=== PATIENT | female | born 1975 | race Two or more races ===

== ENCOUNTER 2017-07-02 14:32 | Emergency (ER) | payer MEDICAID, OTHER ==
[2017-07-02 14:51] VITALS: BMI 29.2
[2017-07-02 14:54] VITALS: TEMP 97.8
[2017-07-02] MEDS ORDERED: Levalbuterol 0.63 MG/3 ML Inhal Soln UD IH STA (15:40)
[2017-07-02] MEDS ORDERED: Albuterol-Ipratrop 3 mg / 0.5 (3 ml) UD IH STA ×2 (16:26→18:45)
[2017-07-02] MEDS ORDERED: Promethazine/Cod 6.25mg-10mg/5ml Syr UD PO STA (16:27)
[2017-07-02] MEDS ORDERED: Albuterol-Ipratrop 3 mg / 0.5 (3 ml) UD ONE (16:28)
--- NOTE | 2017-07-02 16:29 | RAD ---
HISTORY: SOB COMPARISON: No prior. FINDINGS: LUNGS: The lungs are clear. PLEURA: No significant pleural effusion identified, no pneumothorax apparent. CARDIOVASCULAR: Normal. OSSEOUS STRUCTURES: No significant abnormalities. VISUALIZED UPPER ABDOMEN: Normal. OTHER FINDINGS: None. IMPRESSION: Limited portable examination, no acute findings.
[2017-07-02 16:50] LABS: BASO # 0.04 K/mm3 (0.0-2.0); BASO % 0.2 % (0.0-3.0); EOS % 0.1 % (1.5-5.0); GRAN # 11.75 (1.4-6.5); GRAN % 70.6 % (50.0-68.0); HEMOGLOBIN 10.9 g/dL (12.0-16.0); LYMPH # 4.2 (1.2-3.4); LYMPH % 25.1 % (22.0-35.0); MEAN CELL VOLUME 89.1 fl (80.0-105.0); MEAN CORPUSCULAR HEMOGLOBIN 28.2 pg (25.0-35.0); MEAN CORPUSCULAR HGB CONC 31.6 g/dl (31.0-37.0); MEAN PLATELET VOLUME 9.2 fl (7.0-11.0); MONO # 0.7 (0.1-0.6); RBC 3.87 10^6/uL (3.5-6.1); RED CELL DISTRIBUTION WIDTH 15.3 % (11.5-14.5); WHITE BLOOD COUNT 16.7 10^3/ul (4.5-11.0)
[2017-07-02 17:18] LABS: PARTIAL THROMBOPLASTIN TIME 31.8 Seconds (25.1-36.5); PROTHROMBIN TIME 11.4 SECONDS (9.4-12.5)
[2017-07-02 18:20] LABS: ALB/GLOB RATIO 1.1 (1.1-1.8); ALBUMIN 3.6 g/dL (3.0-4.8); ALT/SGPT 30 U/L (7-56); AST/SGOT 28 U/L (14-36); BLOOD UREA NITROGEN 22 mg/dL (7-21); CALCIUM 9.1 mg/dL (8.4-10.5); GFR AFRICAN-AMERICAN > 60; GFR NON-AFRICAN AMERICAN > 60
--- NOTE | 2017-07-02 18:25 | ED PDOC ---
Arrival/HPI - General Chief Complaint: Shortness Of Breath Time Seen by Provider: 07/02/17 15:36 Historian: Patient - History of Present Illness Narrative History of Present Illness (Text): 07/02/17 21:34 41yo female referred to ED by Dr. Katz for days history of cough, SOB and wheezing. Patient was seen at [facility] and was given albuterol and antitussive for Bronchitis. Pt states taking the medication without relieve. She smoke tobacco. She reports chest pain with the cough. Denies fever, chills, sick contact, travel, any other complaint. Past Medical History - Provider Review Nursing Documentation Reviewed: Yes - Infectious Disease Hx of Infectious Diseases: None - Hematological/Oncological Hx Shingles: Yes - Musculoskeletal/Rheumatological Hx Arthritis: Yes Hx Back Pain: Yes Hx Falls: No Other/Comment: neck problem - Psychiatric Hx Substance Use: Yes (marijuana) - Surgical History Hx Tubal Ligation: Yes - Anesthesia Hx Anesthesia: Yes Hx Anesthesia Reactions: No Family/Social History - Physician Review Nursing Documentation Reviewed: Yes Family/Social History: Unknown Family HX Smoking Status: Heavy Smoker > 10 Cigarettes Daily Hx Alcohol Use: Yes (social) Hx Substance Use: Yes (marijuana) Allergies/Home Meds Allergies/Adverse Reactions: Allergies amoxicillin Allergy (Verified 07/26/15 13:19) RASH sulfamethoxazole [From Bactrim] Allergy (Verified 07/26/15 13:21) ITCHING trimethoprim [From Bactrim] Allergy (Verified 07/26/15 13:21) ITCHING Home Medications: Home Meds Medication Instructions Recorded Confirmed Albuterol 0.083% [Albuterol 0.083% 1 vial IH QID 07/02/17 07/02/17 Inhal Nadine (2.5 mg/3 ml) UD] Gabapentin [Neurontin] 1 tab PO DAILY 07/02/17 07/02/17 Review of Systems - Physician Review All systems were reviewed & negative as marked: Yes - Review of Systems Constitutional: Normal Eyes: Normal ENT: Normal Respiratory: SOB, Cough, Wheezing. absent: Sputum Cardiovascular: Normal Gastrointestinal: Normal Genitourinary Female: Normal Musculoskeletal: Normal Skin: Normal Neurological: Normal Endocrine: Normal Hemo/Lymphatic: Normal Psychiatric: Normal Physical Exam Vital Signs Reviewed: Yes Vital Signs Temp Pulse Resp BP Pulse Ox 07/02/17 21:06 82 18 132/80 99 07/02/17 18:26 84 20 147/66 96 07/02/17 16:43 80 22 98 07/02/17 16:41 24 07/02/17 14:54 97.8 F 72 20 137/103 H 97 Temperature: Afebrile Blood Pressure: Hypertensive Pulse: Regular Respiratory Rate: Normal Appearance: Positive for: Well-Appearing, Non-Toxic, Comfortable Pain Distress: None Mental Status: Positive for: Alert and Oriented X 3 - Systems Exam Head: Present: Atraumatic, Normocephalic Pupils: Present: PERRL Extroacular Muscles: Present: EOMI Conjunctiva: Present: Normal Mouth: Present: Moist Mucous Membranes Neck: Present: Normal Range of Motion Respiratory/Chest: Present: Good Air Exchange, Wheezes (Diffuse expiratory wheeze), Decreased Breath Sounds (Diffuse). No: Respiratory Distress, Accessory Muscle Use, Retracting, Rhonchi, Tachypneic Cardiovascular: Present: Regular Rate and Rhythm, Normal S1, S2. No: Murmurs Abdomen: Present: Normal Bowel Sounds. No: Tenderness, Distention, Peritoneal Signs Back: Present: Normal Inspection Upper Extremity: Present: Normal Inspection. No: Cyanosis, Edema Lower Extremity: Present: Normal Inspection. No: Edema Neurological: Present: GCS=15, CN II-XII Intact, Speech Normal Skin: Present: Warm, Dry, Normal Color. No: Rashes Psychiatric: Present: Alert, Oriented x 3, Normal Insight, Normal Concentration Medical Decision Making ED Course and Treatment: 07/02/17 21:36 Pt continue to wheeze in ED s/p treatment. CXR was negative. Leukocytosis was noted, but source could not be determined at this point. Blood culture pending. BP improved in ED. EKG NSR @73bpm Pt was admitted for status asthmaticus. Case was DW Dr. Downing Resident who also saw pt in ED. - Lab Interpretations Lab Results: 07/02/17 16:20 07/02/17 17:30 Lab Results 07/02/17 17:30: Phosphorus 2.7, Magnesium 2.1 07/02/17 17:30: Iron 12 L, TIBC 339, % Saturation 3 L 07/02/17 17:30: Sodium 141, Potassium 4.0, Chloride 106, Carbon Dioxide 25, Anion Gap 14, BUN 22 H, Creatinine 0.9, Est GFR ( Amer) > 60, Est GFR ( Non-Af Amer) > 60, Random Glucose 149 H, Calcium 9.1, Total Bilirubin 0.1 L, AST 28, ALT 30, Alkaline Phosphatase 64, Lactate Dehydrogenase 611, Total Creatine Kinase 244 H, CK-MB (CK-2) 1.1, CK-MB (CK-2) % Cancelled, Troponin I < 0.01, Total Protein 6.7, Albumin 3.6, Globulin 3.1, Albumin/Globulin Ratio 1.1 07/02/17 16:20: PT 11.4, INR 1.00, APTT 31.8, D-Dimer, Quantitative 243 07/02/17 16:20: WBC 16.7 H D, RBC 3.87, Hgb 10.9 L, Hct 34.5 L, MCV 89.1, MCH 28.2, MCHC 31.6, RDW 15.3 H, Plt Count 340, MPV 9.2, Gran % 70.6 H, Lymph % ( Auto) 25.1, [place] % (Auto) 4.0, Eos % (Auto) 0.1 L, Baso % (Auto) 0.2, Gran # 11.75 H, Lymph # 4.2 H, [place] # 0.7 H, Eos # 0.0, Baso # 0.04 - RAD Interpretation Radiology Orders: 07/02/17 15:39 CHEST PORTABLE [RAD] Stat - Medication Orders Current Medication Orders: Acetaminophen (Tylenol 325mg Tab) 650 mg PO Q4 PRN PRN Reason: Fever >100.4 F Acetylcysteine (Acetylcysteine 20%) 4 ml IH [id number] [facility] Last Admin: 07/02/17 21:08 Dose: Not Given Non-Admin Reason: Patient Refused Albuterol/Ipratropium (Duoneb 3 Mg/0.5 Mg (3 Ml) Ud) 3 ml IH [id number] [facility] Last Admin: 07/02/17 21:07 Dose: Not Given Non-Admin Reason: Patient Refused Albuterol/Ipratropium (Duoneb 3 Mg/0.5 Mg (3 Ml) Ud) 3 ml IH Q2H PRN PRN Reason: Shortness of Breath Guaifenesin/Dextromethorphan (Mucinex-Dm 600-30 Mg) 1 tab PO BID [facility] Last Admin: 07/02/17 21:08 Dose: Not Given Non-Admin Reason: Patient Refused Levofloxacin/Dextrose (Levaquin 750mg) 750 mg in 150 mls @ 100 mls/hr IVPB DAILY KELSEY PRN Reason: Protocol Last Admin: 07/02/17 21:08 Dose: Not Given Non-Admin Reason: Patient Refused Ibuprofen (Motrin Tab) 400 mg PO Q6H PRN PRN Reason: Pain, Mild (1-3) Ibuprofen (Motrin Tab) 400 mg PO Q4H PRN PRN Reason: Pain, Mild (1-3) Methylprednisolone (Solu-Medrol) 40 mg IVP Q8 [facility] Oxycodone/Acetaminophen (Percocet 10/325 Mg Tab) 1 tab PO Q6H PRN PRN Reason: Pain, severe (8-10) Pantoprazole Sodium (Protonix Ec Tab) 40 mg PO 0600 [facility] Discontinued Medications Albuterol/Ipratropium (Duoneb 3 Mg/0.5 Mg (3 Ml) Ud) 3 ml IH STAT STA Stop: 07/02/17 16:27 Last Admin: 07/02/17 16:32 Dose: 3 ml Albuterol/Ipratropium (Duoneb 3 Mg/0.5 Mg (3 Ml) Ud) 3 ml IH STAT STA Stop: 07/02/17 18:46 Last Admin: 07/02/17 19:02 Dose: 3 ml Albuterol/Ipratropium (Duoneb 3 Mg/0.5 Mg (3 Ml) Ud) 3 ml IH Q15M KELSEY Stop: 07/02/17 19:46 Last Admin: 07/02/17 21:07 Dose: Not Given Non-Admin Reason: Patient Refused Ketorolac Tromethamine (Toradol) 30 mg IVP STAT STA Stop: 07/02/17 16:28 Last Admin: 07/02/17 16:36 Dose: 30 mg MAR Pain Assessment Document 07/02/17 16:36 [email or web address] (Rec: 07/02/17 16:37 CAST [id number]) Pain Reassessment Is this a pain reassessment? No Sleep Is patient sleeping during reassessment? No Presence of Pain Presence of Pain Yes Pain Scale Used Pain Scale Used Numeric Location Pain Location Body Bridal Sales Consultant Description Description Constant Intensity of Pain at present 8 Pain Behavior Facial Grimacing Aggravating Factors Changing Position Alleviating Factors/Management Medication Techniques Alleviating Factors Medication IVP Administration Document 07/02/17 16:36 CAST (Rec: 07/02/17 16:[id number]) Charges for Administration # of IVP Administrations 1 Levalbuterol HCl (Xopenex) 0.63 mg IH ONCE STA Stop: 07/02/17 15:41 Last Admin: 07/02/17 16:32 Dose: 0.63 mg Methylprednisolone (Solu-Medrol) 125 mg IVP STAT STA Stop: 07/02/17 15:41 Last Admin: 07/02/17 16:32 Dose: 125 mg IVP Administration Document 07/02/17 16:32 CAST (Rec: 07/02/17 16:[id number]) Charges for Administration # of IVP Administrations 1 Methylprednisolone (Solu-Medrol) 40 mg IVP STAT STA Stop: 07/02/17 19:15 Last Admin: 07/02/17 21:13 Dose: 40 mg IVP Administration Document 07/02/17 21:13 CAST (Rec: 07/02/17 21:[id number]) Charges for Administration # of IVP Administrations 1 Promethazine HCl/Codeine (Phenergan/Codeine Oral Syrup) 5 ml PO STAT STA Stop: 07/02/17 16:28 Last Admin: 07/02/17 16:36 Dose: 5 ml Disposition/Present on Arrival - Present on Arrival Any Indicators Present on Arrival: No History of DVT/PE: No History of Uncontrolled Diabetes: No Urinary Catheter: No History of Decub. Ulcer: No History Surgical Site Infection Following: None - Disposition Have Diagnosis and Disposition been Completed?: Yes Diagnosis: Status asthmaticus Disposition: AGAINST MEDICAL ADVICE Disposition Time: 20:10 Patient Problems: Current Active Problems Problem Status Onset Status asthmaticus Acute Condition: FAIR
[2017-07-02 18:27] LABS: TROPONIN I < 0.01 ng/mL
[2017-07-02 18:32] LABS: CK-MB 1.1 ng/mL (0.0-3.6)
[2017-07-02] MEDS ORDERED: Oxycodone/Acetaminophen 10/325 mg Tab PO PRN (19:11)
[2017-07-02] MEDS ORDERED: MethylPREDNISolone 40 mg Vial IVP STA (19:14)
[2017-07-02] MEDS ORDERED: Albuterol-Ipratrop 3 mg / 0.5 (3 ml) UD IH SCH (19:30)
[2017-07-02] MEDS ORDERED: guaiFENesin-DM 600-30 mg ER Tab PO SCH (19:30)
[2017-07-02 19:32] LABS: IRON 12 ug/dL (45-180); MAGNESIUM 2.1 mg/dL (1.7-2.2)
--- NOTE | 2017-07-02 19:32 | CP.PCM.HP ---
History of Present Illness - History of Present Illness History of Present Illness: Jhon Traore PGY1 IM H&P Note for Dr. Downing/Dr. Katz Service cc: sob, cough and wheezing Ms. Skaggs is a 41 yo F with PMH migraines, neck pain, tobacco use and seasonal allergies who presented to ED with her father per Dr. Katz recommendations for shortness of breath, cough and wheezing x1 week. 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 Patient was seen at [facility] and was given albuterol and antitussive for Bronchitis, however, reports taking the medication without relief. pt denies ever having asthma or any respiratory symptoms. denies abdominal pain, weakness, fevers/chills, n/v/d , recent illness, sick contacts. cough is sometimes productive and other times dry. 12-pt ROS was reviewed and is otherwise unremarkable. In ED, solu-medrol 125mg IVP, Duonebs x2, Toradol and Xopenex were given. Patient still uncomfortable when seen by me. PMD: Dr. Katz PMH: as above PSH: tubal ligation Meds: on pain meds (percocet, gabapentin and felexeril), excedrin NKDA SHx: smokes 1pk yr for many years, denies etoh, former marijuana smoker, denies cocaine or heroin Present on Admission - Present on Admission Any Indicators Present on Admission: No Review of Systems - Review of Systems All systems: reviewed and no additional remarkable complaints except (as per HPI ) Past Patient History - Infectious Disease Hx of Infectious Diseases: None - Past Social History Smoking Status: Heavy Smoker > 10 Cigarettes Daily Alcohol: None Drugs: Denies - CARDIAC Hx Cardiac Disorders: No - PULMONARY Hx Respiratory Disorders: No Hx Asthma: No Hx Bronchitis: No Hx Chronic Obstructive Pulmonary Disease (COPD): No - NEUROLOGICAL Hx Neurological Disorder: No - HEENT Hx HEENT Problems: No - RENAL Hx Chronic Kidney Disease: No - ENDOCRINE/METABOLIC Hx Endocrine Disorders: No - HEMATOLOGICAL/ONCOLOGICAL Hx Blood Disorders: No - INTEGUMENTARY Hx Dermatological Problems: No - MUSCULOSKELETAL/RHEUMATOLOGICAL Hx Arthritis: Yes Hx Back Pain: Yes (neck) Hx Falls: No Other/Comment: neck problem - GASTROINTESTINAL Hx Gastrointestinal Disorders: No - GENITOURINARY/GYNECOLOGICAL Hx Genitourinary Disorders: No - PSYCHIATRIC Hx Psychophysiologic Disorder: No Hx Substance Use: Yes (marijuana) - SURGICAL HISTORY Hx Surgeries: No Hx Tubal Ligation: Yes - ANESTHESIA Hx Anesthesia: Yes Hx Anesthesia Reactions: No Meds Allergies/Adverse Reactions: Allergies Allergy/AdvReac Type Severity Reaction Status Date / Time amoxicillin Allergy RASH Verified 07/26/15 13:19 sulfamethoxazole Allergy ITCHING Verified 07/26/15 13:21 [From Bactrim] trimethoprim [From Bactrim] Allergy ITCHING Verified 07/26/15 13:21 Physical Exam - Constitutional Appears: Well, Non-toxic, No Acute Distress - Head Exam Head Exam: ATRAUMATIC, NORMOCEPHALIC - Eye Exam Eye Exam: EOMI, Normal appearance, PERRL - ENT Exam ENT Exam: Mucous Membranes Moist, Normal Oropharynx - Neck Exam Neck exam: Positive for: Normal Inspection - Respiratory Exam Respiratory Exam: Wheezes (diffuse expiratory b/l), NORMAL BREATHING PATTERN. absent: Rales, Respiratory Distress Additional comments: pain w/ respiration - Cardiovascular Exam Cardiovascular Exam: RRR, +S1, +S2 - GI/Abdominal Exam GI & Abdominal Exam: Soft. absent: Distended, Tenderness - Extremities Exam Extremities exam: Positive for: normal inspection. Negative for: pedal edema - Back Exam Back exam: NORMAL INSPECTION - Neurological Exam Neurological exam: Alert, Oriented x3 - Psychiatric Exam Psychiatric exam: Normal Affect, Normal Mood - Skin Skin Exam: Normal Color, Warm Results - Vital Signs Recent Vital Signs: Last Vital Signs Temp 97.8 F 07/02/17 14:54 Pulse 84 07/02/17 18:26 Resp 20 07/02/17 18:26 BP 147/66 07/02/17 18:26 Pulse Ox 96 07/02/17 18:26 - Labs Result Diagrams: 07/02/17 16:20 07/02/17 17:30 Assessment & Plan - Assessment and Plan (Free Text) Assessment: 41 yo F with PMH migraines, neck pain, tobacco use and seasonal allergies who presented to ED with her father per Dr. Katz recommendations for shortness of breath, cough and wheezing x1 week likely 2/2 COPD exacerbation vs bronchitis. CXR: unremarkable, limited. EKG showed NSR 73, QTc 449. Plan: 1. COPD exacerbation vs Bronchitis - started Levaquin - Duoneb Q15m - cont mucomyst, duoneb, mucinex - solu-medrol 40 STAT and Q8H - PRN: Tylenol , duoneb, - for pain : motrin PRN, percocet 10q6 PRN - CT chest ordered - blood and urine cultures ordered - strep pneumo and influenza serology ordered - ID consulted, recs appreciated - Pulm consulted, recs appreciated 2. PPX: ptx/scds Regular diet Patient was seen, and discussed with attending, Dr. Gianna Traore PGY1
[2017-07-02] MEDS ORDERED: Albuterol-Ipratrop 3 mg / 0.5 (3 ml) UD IH PRN (19:35)
[2017-07-02 19:41] LABS: TOTAL IRON BINDING CAPACITY 339 ug/dL (265-497)
[2017-07-02 19:43] LABS: % IRON SATURATION 3 % (20-55)
[2017-07-02] MEDS ORDERED: Acetylcysteine 20% Inhal Soln (4ml) IH SCH (20:00)
[2017-07-02] MEDS ORDERED: levoFLOXacin 750 mg in D5W 750 MG/150 ML BAG IVPB SCH (21:00)
[2017-07-02 21:07] VITALS: BP 132/80
[2017-07-02] MEDS: Albuterol-Ipratrop 3 mg / 0.5 (3 ml) UD IH SCH (21:07)
[2017-07-02 21:14] VITALS: PULSE 80; RESP 20; O2SAT 98
[2017-07-02] MEDS ORDERED: MethylPREDNISolone 40 mg Vial IVP SCH (22:00)
[2017-07-03] MEDS ORDERED: Pantoprazole 40 mg EC Tab PO SCH (06:00)
[2017-07-03] MEDS ORDERED: Azithromycin 500MG/NS 250ml 500 MG/250 ML BAG IVPB SCH (10:00)
[2017-07-03] MEDS ORDERED: levoFLOXacin 750 mg in D5W 750 MG/150 ML BAG IVPB SCH (10:00)
--- NOTE | 2017-07-03 14:15 | CP.PCM.DIS ---
Provider - Provider Primary care physician: Yovani Katz MD Time Spent in preparation of Discharge (in minutes): 30 Diagnosis - Discharge Diagnosis (1) COPD exacerbation Status: Acute (2) Tobacco consumption Status: Acute Hospital Course - Lab Results Lab Results: Most Recent Lab Values WBC 16.7 10^3/ul (4.5-11.0) H D 07/02/17 16:20 RBC 3.87 10^6/uL (3.5-6.1) 07/02/17 16:20 Hgb 10.9 g/dL (12.0-16.0) L 07/02/17 16:20 Hct 34.5 % (36.0-48.0) L 07/02/17 16:20 MCV 89.1 fl (80.0-105.0) 07/02/17 16:20 MCH 28.2 pg (25.0-35.0) 07/02/17 16:20 MCHC 31.6 g/dl (31.0-37.0) 07/02/17 16:20 RDW 15.3 % (11.5-14.5) H 07/02/17 16:20 Plt Count 340 10^3/uL (120.0-450.0) 07/02/17 16:20 MPV 9.2 fl (7.0-11.0) 07/02/17 16:20 Gran % 70.6 % (50.0-68.0) H 07/02/17 16:20 Lymph % (Auto) 25.1 % (22.0-35.0) 07/02/17 16:20 [place] % (Auto) 4.0 % (1.0-6.0) 07/02/17 16:20 Eos % (Auto) 0.1 % (1.5-5.0) L 07/02/17 16:20 Baso % (Auto) 0.2 % (0.0-3.0) 07/02/17 16:20 Gran # 11.75 (1.4-6.5) H 07/02/17 16:20 Lymph # 4.2 (1.2-3.4) H 07/02/17 16:20 [place] # 0.7 (0.1-0.6) H 07/02/17 16:20 Eos # 0.0 (0.0-0.7) 07/02/17 16:20 Baso # 0.04 K/mm3 (0.0-2.0) 07/02/17 16:20 PT 11.4 SECONDS (9.4-12.5) 07/02/17 16:20 INR 1.00 (0.93-1.08) 07/02/17 16:20 APTT 31.8 Seconds (25.1-36.5) 07/02/17 16:20 D-Dimer, Quantitative 243 ng/mL (0-243) 07/02/17 16:20 Sodium 141 mmol/L (132-148) 07/02/17 17:30 Potassium 4.0 mmol/L (3.6-5.0) 07/02/17 17:30 Chloride 106 mmol/L (98-107) 07/02/17 17:30 Carbon Dioxide 25 mmol/L (21-33) 07/02/17 17:30 Anion Gap 14 (10-20) 07/02/17 17:30 BUN 22 mg/dL (7-21) H 07/02/17 17:30 Creatinine 0.9 mg/dl (0.7-1.2) 07/02/17 17:30 Est GFR ( Amer) > 60 07/02/17 17:30 Est GFR (Non-Af Amer) > 60 07/02/17 17:30 Random Glucose 149 mg/dL (70-110) H 07/02/17 17:30 Calcium 9.1 mg/dL (8.4-10.5) 07/02/17 17:30 Phosphorus 2.7 mg/dL (2.5-4.5) 07/02/17 17:30 Magnesium 2.1 mg/dL (1.7-2.2) 07/02/17 17:30 Iron 12 ug/dL (45-180) L 07/02/17 17:30 TIBC 339 ug/dL (265-497) 07/02/17 17:30 % Saturation 3 % (20-55) L 07/02/17 17:30 Transferrin 301.73 mg/dL (206-381) 07/02/17 17:30 Ferritin 16.7 ng/mL 07/02/17 17:30 Total Bilirubin 0.1 mg/dL (0.2-1.3) L 07/02/17 17:30 AST 28 U/L (14-36) 07/02/17 17:30 ALT 30 U/L (7-56) 07/02/17 17:30 Alkaline Phosphatase 64 U/L (38-126) 07/02/17 17:30 Lactate Dehydrogenase 611 U/L (333-699) 07/02/17 17:30 Total Creatine Kinase 244 U/L (35-230) H 07/02/17 17:30 CK-MB (CK-2) 1.1 ng/mL (0.0-3.6) 07/02/17 17:30 CK-MB (CK-2) % Cancelled 07/02/17 17:30 Troponin I < 0.01 ng/mL 07/02/17 17:30 Total Protein 6.7 g/dL (5.8-8.3) 07/02/17 17:30 Albumin 3.6 g/dL (3.0-4.8) 07/02/17 17:30 Globulin 3.1 gm/dL 07/02/17 17:30 Albumin/Globulin Ratio 1.1 (1.1-1.8) 07/02/17 17:30 Vitamin B12 290 pg/mL (239-931) 07/02/17 17:30 - Hospital Course Hospital Course: Ms. Skaggs is a 41 yo F with PMH migraines, neck pain, tobacco use and seasonal allergies who presented to ED with her father per Dr. Katz recommendations for shortness of breath, cough and wheezing x1 week. 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 Patient was seen at [facility] and was given albuterol and antitussive for Bronchitis, however, reports taking the medication without relief. pt denies ever having asthma or any respiratory symptoms. denies abdominal pain, weakness, fevers/chills, n/v/d , recent illness, sick contacts. cough is sometimes productive and other times dry. Patient signed out AMA from ED before full workup or treatment was carried out. faculty i on call medical assistant resident was notified. I personally did not get to examine the patient and I feel that she could have benefit from continued antibitiocs, steroids and breathing treatments. Discharge Exam - Additional Findings Additional findings: Patient was not seen by me or assessed Discharge Plan - Follow Up Plan Condition: FAIR Disposition: AGAINST MEDICAL ADVICE Referrals: Yovani Katz MD [Primary Care Provider] -
--- NOTE | 2017-07-03 15:16 | CARD ---
APPROVED REPORT EKG Measurement Heart [id number] <Conclusion> Normal sinus rhythm Normal ECG
== END 2017-07-02 21:14 | disposition left against medical advice (07) ==
LOC: ED 14:32 → ERH 17:38 → UNDOADMIN 17:38
DX: J45.902 Unspecified asthma with status asthmaticus (principal); F17.210 Nicotine dependence, cigarettes, uncomplicated
CPT/HCPCS: 71045; 80053; 82550; 82553; 82607; 82728; 83615; 83735; 84100; 84466; 84484; 85025; 85378; 85610; 85730; 87040; 93005; 96374; 96375; 96376; 99285; J1885; J2920; J2930